=== PATIENT | male | born 1970 | race Caucasian/White ===

== ENCOUNTER 2017-01-19 16:06 | Emergency (ER) | payer SELFPAY ==
[2017-01-19 16:10] VITALS: BP 148/95; PULSE 107; TEMP 98; BMI 27.1
[2017-01-19] MEDS ORDERED: KETOROLAC TROMETHAMINE 60 MG/2 ML VIAL IM ONE (16:29)
[2017-01-19] MEDS ORDERED: CYCLOBENZAPRINE HCL 10 MG TABLET (FP) PO ONE (16:29)
[2017-01-19] MEDS ORDERED: predniSONE 20 MG TABLET (UD) PO ONE (16:30)
[2017-01-19] MEDS ORDERED: predniSONE 20 MG TABLET (UD) ONE (16:35)
[2017-01-19] MEDS ORDERED: KETOROLAC TROMETHAMINE 60 MG/2 ML VIAL ONE (16:35)
[2017-01-19] MEDS ORDERED: CYCLOBENZAPRINE HCL 10 MG TABLET (FP) ONE (16:35)
--- NOTE | 2017-01-19 16:36 | PDOC ---
History of Present Illness - General Chief Complaint: Back Pain Stated Complaint: LOWER BACK PAIN Time Seen by Provider: 01/19/17 16:19 History Source: Patient Exam Limitations: No Limitations - History of Present Illness Initial Comments: 01/19/17 16:32 46 yr male with c/o low back pain for 2 weeks getting worse, pt states pain is causing difficulty ambulating. Pt denies trauma, has known herniated discs from years back. Pt denies urine or bowel dysfunction, neg leg numbness. Pt has no fever, no medical history. Occurred: reports: other (2 weeks) Pain Location: reports: back Past History - Past Medical History Allergies/Adverse Reactions: Allergies Allergy/AdvReac Type Severity Reaction Status Date / Time No Known Allergies Allergy Verified 01/19/17 16:10 Home Medications: Ambulatory Orders Cyclobenzaprine HCl [Flexeril 10 mg] 5 mg PO TID PRN #21 tablet 01/19/17 Methylprednisolone [Medrol Dose Pablo] 4 mg PO ASDIR #21 tablet 01/19/17 - Family Disease History Comment:: 01/19/17 16:33 none - Psycho/Social/Smoking Cessation Hx Suicidal Ideation: No Smoking History: Never smoked Information on smoking cessation initiated: No Trauma Specific PMHX - Complaint Specific PMHX Arthritis: No Back Injury: No Neck Injury: No Hx Sacro Iliac Joint Dysfunction: No Review of Systems - Review of Systems Able to Perform ROS?: Yes Is the patient limited Salvadorean proficient: No Constitutional: No: Symptoms Reported HEENTM: No: Symptoms Reported Respiratory: No: Symptoms reported Cardiac (ROS): No: Symptoms Reported ABD/GI: No: Symptoms Reported : No: Symptoms Reported Musculoskeletal: Yes: See HPI, Back Pain *Physical Exam - Vital Signs Last Vital Signs Temp Pulse Resp BP Pulse Ox 98 F 107 H 18 148/95 98 01/19/17 16:07 01/19/17 16:07 01/19/17 16:07 01/19/17 16:07 01/19/17 16:07 - Physical Exam General Appearance: Yes: Nourished, Appropriately Dressed HEENT: positive: EOMI, GUY Neck: positive: Supple Respiratory/Chest: positive: Lungs Clear, Normal Breath Sounds Cardiovascular: positive: Regular Rhythm, Regular Rate Musculoskeletal: positive: Normal Inspection, Decreased Range of Motion, Muscle Spasm (left paraspinal lumbar spine ), Vertebral Tenderness (lumbar spine ). negative: CVA Tenderness, CVA Tenderness (R), CVA Tenderness (L) Extremity: positive: Normal Capillary Refill, Normal Inspection Integumentary: positive: Normal Color, Dry, Warm Neurologic: positive: Fully Oriented, Alert, Normal Mood/Affect, Normal Response , Motor Strength 5/5, Other (SRL left leg pain at 30 degrees) ED Treatment Course - RADIOLOGY Radiology Studies Ordered: Category Date Time Status SPINE-LUMBAR ONLY [RAD] Stat Radiology 01/19/17 16:30 Ordered Medical Decision Making - Medical Decision Making 01/19/17 16:35 cc: low back pain acute on chronic for 2 weeks getting worse no abd pain neg urine or bowel dysfunction no incontinence neg saddle anesthesia will give toradol, flexeril, prednisone ct lumbar spine 01/19/17 17:28 pt improved after meds, sitting more comfortably on the stretcher. pt admits to constipation (xray reviewed) 01/19/17 17:42 pt is ambulatory out of the ER, pt able to get self dressed. i have discussed with and the pt that follow up is strictly important. *DC/Admit/Observation/Transfer Diagnosis at time of Disposition: Back pain Qualifiers: Back pain location: low back pain Chronicity: acute Back pain laterality: bilateral Sciatica presence: with sciatica Sciatica laterality: sciatica of left side Qualified Code(s): M54.42 - Lumbago with sciatica, left side Constipation Qualifiers: Constipation type: other constipation type Qualified Code(s): K59.09 - Other constipation - Discharge Dispostion Disposition: HOME Condition at time of disposition: Improved - Prescriptions Prescriptions: Cyclobenzaprine HCl [Flexeril 10 mg] 5 mg PO TID PRN #21 tablet PRN Reason: Muscle Spasms Methylprednisolone [Medrol Dose Pablo] 4 mg PO ASDIR #21 tablet - Referrals Referrals: Ricardo Grayson MD [Staff Physician] - - Patient Instructions Additional Instructions: please follow up with the orthopedist call TOMORROW to make appointment take the prednisone as directed (medrol dose pack) next dose tomorrow take flexeril as directed for spasm DO NOT DRIVE, OPERATE MACHINERY OR DRINK ALCOHOL start taking Miralax for constipation drink 2-3 liters of water a day high fiber diet you must also follow with primary care doctor for a physical and further workup as needed this week return to ER if any wrosening symptoms - Post Discharge Activity Work/School Note: Back to Work
== END 2017-01-19 17:40 | disposition home or self-care (01) ==
LOC: JERFT 16:06
PROC: 3E0233Z Introduction of Anti-inflammatory into Muscle, Percutaneous Approach (ICD-10-PCS; principal; 2017-01-19)
DX: M54.42 Lumbago with sciatica, left side (principal)
CPT/HCPCS: 72100-TC; 99281-25